=== PATIENT | male | born 1985 | race Caucasian/White ===

== ENCOUNTER → 2019-05-29 08:57 | Outpatient (BNVA) | payer SELFPAY | PROVIDERS: Family Provider Nurse Practitioner Family; PCP Nurse Practitioner Family; Referring Provider Nurse Practitioner Family; Visit Provider Specialist | DX: R41.3 Other amnesia (principal); F17.220 Nicotine dependence, chewing tobacco, uncomplicated; F31.9 Bipolar disorder, unspecified; Z87.820 Personal history of traumatic brain injury | CPT/HCPCS: 99204 ==

== ENCOUNTER → 2019-06-08 08:34 | Outpatient (BNVA) | payer SELFPAY | PROVIDERS: Family Provider Nurse Practitioner Family; PCP Nurse Practitioner Family; Visit Provider Nurse Practitioner | DX: B18.2 Chronic viral hepatitis C (principal); B19.20 Unspecified viral hepatitis C without hepatic coma | CPT/HCPCS: 80053; 82140; 82607; 82746; 82977; 83615; 84443; 84450; 84460; 85651 ==

== ENCOUNTER 2019-06-22 07:14 | Outpatient (CLI) | payer SELFPAY ==
--- NOTE | 2019-06-22 08:00 | NM_ITS ---
WS: [id number] NUCLEAR MEDICINE HIDA SCAN WITH GALLBLADDER EJECTION FRACTION HISTORY: right abd pain COMPARISON: None available. TECHNIQUE: The patient was intravenously injected with 8.3 mCi of TC99m Mebrofenin. Immediate imaging over the right upper quadrant was followed by 5 minute image and additional images for a total of 60 minutes. Normal uptake of radiotracer throughout the liver. Activity identified in the gallbladder at 10 minutes and well distended by 60 minutes. Activity in the proximal small bowel was seen by 10 minutes. Good washout of the radiotracer from the liver by 60 minutes. The patient then drank 8 ounces of Ensure Plus. Ejection fraction at 60 minutes was 41%. Normal GB ej ection fraction is 35-75%. Post fatty meal symptoms: None. NM/NM hepatobiliary w phar* [id number] IMPRESSION: 1. Normal HIDA scan. 2. Normal gallbladder ejection fraction.
== END 2019-06-22 07:15 | disposition home or self-care (01) ==
PROVIDERS: Family Provider Nurse Practitioner Family; PCP Nurse Practitioner Family; Visit Provider Nurse Practitioner
DX: R10.11 Right upper quadrant pain (principal)
CPT/HCPCS: 78227; A9537

== ENCOUNTER 2019-06-25 10:28 | Outpatient (CLI) | payer SELFPAY ==
--- NOTE | 2019-06-25 10:55 | XR_ITS ---
WS: [id number] LUMBAR SPINE: 3 VIEWS TECHNIQUE: AP, lateral and L5-S1 spot. HISTORY: RIGHT upper quadrant pain. COMPARISON: None available. Lumbar vertebra are normally aligned. No loss of disc space or vertebral body height. SI joints are symmetric bilaterally. No soft tissue abnormalities. XR/XR lumbar spine 2-3V* [id number] IMPRESSION: Normal lumbar spine.
--- NOTE | 2019-06-25 10:55 | XR_ITS ---
WS: [id number] THORACIC SPINE TECHNIQUE: AP and lateral views are performed. HISTORY: RIGHT upper quadrant pain. COMPARISON: None available. Thoracic vertebra are normally aligned. Pedicles are all identified. No fracture or destructive bone lesions. XR/XR thoracic spine 3V* [id number] IMPRESSION: Negative thoracic spine radiographs.
== END 2019-06-25 10:29 | disposition home or self-care (01) ==
LOC: RADWPI 10:31
PROVIDERS: Family Provider Nurse Practitioner Family; PCP Nurse Practitioner Family; Visit Provider Nurse Practitioner
DX: R10.11 Right upper quadrant pain (principal)
CPT/HCPCS: 72072; 72100